=== PATIENT | female | born 1965 | race Caucasian/White ===

== ENCOUNTER 2018-06-11 08:53 | Emergency (ER) | payer OTHER, BC ==
[2018-06-11 09:05] VITALS: BP 161/82
[2018-06-11] MEDS ORDERED: KETOROLAC TROMETHAMINE 10 MG TABLET PO ONE (09:30)
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
== END 2018-06-11 09:51 | disposition home or self-care (01) ==
LOC: ER 08:53
DX: M25.512 Pain in left shoulder (principal); M54.9 Dorsalgia, unspecified; V43.52XA Car driver injured in collision with other type car in traffic accident, initial encounter; Z79.899 Other long term (current) drug therapy; Z79.891 Long term (current) use of opiate analgesic; Z79.1 Long term (current) use of non-steroidal anti-inflammatories (NSAID)
CPT/HCPCS: 99283; J3490

== ENCOUNTER 2019-07-22 19:04 | Emergency (ER) | payer SELFPAY ==
[2019-07-22 19:41] VITALS: BP 139/83
--- NOTE | 2019-07-22 19:59 | ER Document Report ---
HPI - HPI Patient complains to provider of: Shoulder pain Time Seen by Provider: 07/22/19 19:45 Onset: Last week Onset/Duration: Gradual Quality of pain: Achy Pain Level: 3 Context: Patient presents complaining of shoulder joint pain for the past week and right thumb pain. Patient states that she does have a history of osteoarthritis and degenerative disc disease. 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 Patient states that they are seasonally busy due to the holidays. Patient denies any traumatic injury. Patient denies any fever. Patient does take chronic pain medication and anti-inflammatory medication for her arthritis. Associated Symptoms: denies: Fever, Headache, Nausea, Vomiting Exacerbated by: Movement Relieved by: Denies Similar symptoms previously: No Recently seen / treated by doctor: No - ROS ROS below otherwise negative: Yes Systems Reviewed and Negative: Yes All other systems reviewed and negative - CONSTITUTIONAL Constitutional: DENIES: Fever - NEURO Neurology: DENIES: Headache, Weakness - GASTROINTESTINAL Gastrointestinal: DENIES: Nausea - REPRODUCTIVE Reproductive: DENIES: : - MUSCULOSKELETAL Musculoskeletal: REPORTS: Extremity pain - DERM Skin Color: Normal Skin Problems: None Past Medical History - General Information source: Patient - Social History Smoking Status: Never Smoker Frequency of alcohol use: None Drug Abuse: None Occupation: packing floor worker Lives with: Family Family History: Reviewed & Not Pertinent Patient has suicidal ideation: No Patient has homicidal ideation: No Neurological Medical History: Reports: Hx Migraine Renal/ Medical History: Denies: Hx Peritoneal Dialysis Musculoskeletal Medical History: Reports Hx Arthritis Psychiatric Medical History: Reports: Hx Depression Past Surgical History: Reports: Hx Breast Surgery - lumpectomy, Hx Hysterectomy, Hx Tonsillectomy - Immunizations Hx Diphtheria, Pertussis, Tetanus Vaccination: Yes Vertical Provider Document - CONSTITUTIONAL Agree With Documented VS: Yes Exam Limitations: No Limitations General Appearance: WD/WN, No Apparent Distress - INFECTION CONTROL TRAVEL OUTSIDE OF THE [place] IN LAST 30 DAYS: No - HEENT HEENT: Atraumatic, Normocephalic - NECK Neck: Normal Inspection, Supple - RESPIRATORY Respiratory: Breath Sounds Normal, No Respiratory Distress, Chest Non-Tender - CARDIOVASCULAR Cardiovascular: Regular Rate, Regular Rhythm Pulses: Normal: Radial - BACK Back: Abnormal Inspection - Upper thoracic paraspinal tenderness - MUSCULOSKELETAL/EXTREMETIES Musculoskeletal/Extremeties: MAEW, FROM, Tender - Bilateral shoulder joint t enderness and right thumb tenderness, no swelling, erythema or calor overlying joints., No Edema. negative: Eccymosis Notes: Patient with full range of motion to bilateral shoulders and right thumb. Normal strength to right thumb against resistance. Shoulder joint tenderness increases with extension and abduction. - NEURO Level of Consciousness: Awake, Alert, Appropriate Motor/Sensory: No Motor Deficit, No Sensory Deficit - DERM Integumentary: Warm, Dry, No Rash Course - Re-evaluation Re-evalutation: 07/22/19 19:59 Patient without any history of trauma. Normal examination of the joints altho ugh patient does have tenderness with range of motion. Patient has known history of osteoarthritis and degenerative disc disease. 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 Patient has been doing a lot of heavy lifting and moving that she is not typically done, and this is the holiday season so she has been exceptionally busy at her job. - Vital Signs Vital signs: Temp Pulse Resp BP Pulse Ox 98.0 F 92 16 139/83 H 97 07/22/19 19:46 07/22/19 19:37 07/22/19 19:46 07/22/19 19:37 07/22/19 19:46 Discharge - Discharge Clinical Impression: Overuse injury, Tendonitis Condition: Stable Disposition: HOME, SELF-CARE Instructions: Overuse Syndrome ([facility]), Tendonitis ([facility]) Additional Instructions: Return immediately for any new or worsening symptoms Followup with your primary care provider, call tomorrow to make a followup appointment Limit repetitive motions, avoid heavy lifting Take your anti-inflammatory medication that you have at home as prescribed Follow-up with orthopedics for any persistent pain or problems Forms: Restricted Release, Return to Work Referrals: LORENZA JOHNSON DO [ACTIVE STAFF] - Follow up as needed [facility] [Provider Group] - Follow up as needed [facility] [Provider Group] - Follow up as needed
== END 2019-07-22 20:05 | disposition home or self-care (01) ==
LOC: ER 19:04
DX: T14.90XA Injury, unspecified, initial encounter (principal); X58.XXXA Exposure to other specified factors, initial encounter; M77.9 Enthesopathy, unspecified; M79.644 Pain in right finger(s); M25.519 Pain in unspecified shoulder
CPT/HCPCS: 99283